=== PATIENT | male | born 1965 | race Caucasian/White ===

== ENCOUNTER 2023-04-18 08:20 | Outpatient (CLI) | payer BC, SELFPAY ==
--- NOTE | ~2023-04-18 | XR_ITS ---
AP, oblique, and lateral views of the right great toe CLINICAL HISTORY: Chronic pain FINDINGS: There is moderate to advanced degenerative change at the first metatarsophalangeal joint. N o fracture or dislocation seen. Remaining visualized joint spaces are preserved. Soft tissues are unr emarkable. IMPRESSION: Moderate to advanced osteoarthritis at the first MTP joint and first metatarsal sesamoid articulation s. Reviewed, dictated and finalized at location . IMPRESSION: Moderate to advanced osteoarthritis at the first MTP joint and first metatarsal sesamoid articulations.
== END 2023-04-18 08:21 | disposition home or self-care (01) ==
LOC: CHSIMG 08:25
PROVIDERS: PCP Family Medicine; Visit Provider Physician Assistant
DX: M79.674 Pain in right toe(s) (principal); M19.071 Primary osteoarthritis, right ankle and foot
CPT/HCPCS: 73660

== ENCOUNTER 2025-01-29 07:02 | Outpatient (CLI) | payer BC, SELFPAY ==
--- OUTSIDE RECORDS SUMMARY | 2025-01-29 07:09 | XMS_ITS | Encounter Summary ---
Author Organization [facility] Healthcare Address [address] [place] [address] Care Team Providers Care Food Safety Scientist Name Role Phone Donis Ramos MD Primary Care Provider [phone] Victor Manuel Nicole MD PhD Unavailable [phone] Alex Gustafson MD Unavailable [phone] Encounter Details Date Type Department Care Team (Late st Contact Info) Description 12/24/2021 Telephone [facility] [address] [place] [address] Safia Tinsley, RT Social History Tobacco Use Types Packs/Day Years Used Date Smoking Tobacco: Former Cigarettes 1.5 18 1 985 - 2002 Smokeless Tobacco: Former Chew Quit: 1988 Alcohol Use Standard Drinks/Week Comments Yes 0 (1 standard drink = 0.6 oz pur e alcohol) frequent, 12 per week Sex and Gender Information Value Date Recorded Sex Assigned at Not on file 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
--- OUTSIDE RECORDS SUMMARY | 2025-01-29 07:09 | XMS_ITS | Clinical Summary ---
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 Gender Identity Not on file Sexual Orientation Not on file Plan of Treatment Health Maintenance Due Date Last Done Comments Colorectal Cancer Screening Colonoscopy (10 Years) 1967 Annual Physical 1970 Hepatitis C 1985 DTaP, Tdap and Td Vaccines ( 1 - Tdap) 1986 Hepatitis B Vaccines (1 of 3 - 19+ 3-dose series) 1986 Zoster Vaccines (1 of 2) 2017 COVID-19 Vaccine (2023-2 5 season) 2024 Influenza Adult (#1) 2024 Meningococcal B Vaccine Aged Out No l onger eligible based on patient's age to complete this topic Meningococcal Vaccine Aged Out No юлия katalina eligible based on patient's age to complete this topic Pneumococcal Vaccine: Pediat rics (0 to 5 Years) and At-Risk Patients (6 to 64 Years) Aged Out No longer eligible b ased on patient's age to complete this topic RSV Immunizations Under 20 Months Aged Out No longer eligible based on patient's age to complete this topic Insurance [facility] [place] Care Teams Manager Forms Relationship Specialty Start Date End Date Donis Ramos MD [address] [place] [id number] PCP - General FAMILY PRACTICE 05/15/21
--- OUTSIDE RECORDS SUMMARY | 2025-01-29 07:09 | XMS_ITS | Referral Summary ---
Author Organization [facility] Address [address] [place] [address] Care Team Providers Care Desulfurizer Hand Name Role Phone Donis Ramos MD Primary Care Provider [phone] Victor Manuel Nicole MD PhD Unavailable [phone] Alex Gustafson MD Unavailable [phone] Allergies No known active allergies Medications omega 8-wqy-dkf-fish oil (FISH OIL) 100-160-1,000 mg capsule Active multivitamin (DAILY MULTI-VITAMIN) tabletIndicatio ns:Vitamin Deficiency Prevention Active sertraline (ZOLOFT) 100 mg tablet Take 1 tablet (100 mg total) by mouth daily Active melatonin 5 mg tablet Active omeprazole (PriLOSEC) 40 mg capsule Take 1 capsule (40 mg total) by mouth 2 (two) times a day 60 capsule 2 Active meloxicam (MOBIC) 7.5 mg tabletIndicatio ns:Osteoarthrit is Take 1 tablet (7.5 mg total) by mouth daily 30 tablet 2 2 Active azelastine (ASTELIN) 137 mcg (0.1 %) nasal spray Administer 2 sprays into each nostril daily Use in each nostril as directed 30 mL 2 2 Active permethrin (ELIMITE) 5 % cream 3 Active pimecrolimus (ELIDEL) 1 % cream Apply topically 2 (two) times a day 30 g 3 4 Active Active Problems Problem Noted Date Diagnosed Date Tear of right rotator cuff 05/18/2019 Overview (05/18/2019): Added automatically from request for surgery [id number] 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 Gender Identity Not on file Sexual Orientation Not on file Last Filed Vital Signs Vital Sign Reading Time Taken Comments Blood Pressure 130/84 09/06/2020 11:06 AM BANK CASHIER Pulse 83 09/06/2020 11:07 AM BANK CASHIER righ t Temperature 37.4 C (99.3 F) 09/06/2020 11:06 AM BANK CASHIER Respiratory Rate 16 09/06/2020 11:06 AM BANK CASHIER Oxygen Saturation 96% 09/06/2020 11:07 AM BANK CASHIER right Inhaled Oxygen Concentration - - Weight 82.1 kg (181 lb) 10/17/2024 7:58 AM BANK CASHIER Height 170.2 cm (5' 7 ) 07/01/2023 11:17 AM CDT Body Mass Index 28.35 07/01/2023 11:17 AM CDT Plan of Treatment Not on file Medical Devices Implanted Type Area Monorail Car Operator Device Identifier Shelf Expiration Date Model / Serial / Lot [employer] Ar-2324 Bcm Swivelock 4.75mm 24.5mm Self Punch Vent Shoulder [place] Suture - [id number] Implanted:Qty: 1 on 06/28/2019 by Oscar Laboy MD at [facility] Right: Shoulder [employer] 11/30/2020 [id number] / / [id number] [employer] Ar-2267 Child Day Care Teacher Large Eyelet Pectoralis Button Fixation Latex Free - [id number] Implanted:Qty: 1 on 06/28/2019 by Oscar Laboy MD at [facility] Right: Shoulder [employer] 02/28/2024 AR-2267 / / [id number] Procedures Procedure Name Priority Date/Time Associated Diagnosis Comments SERUM HEPATITIS C AB Routine 04/08/2014 6:31 AM CDT from Last 3 Months or Most Recently Relevant to Health Maintenance Results * Serum Hepatitis C ab (04/08/2014 6:31 AM CDT) HCV ab Negative NEG HISTORICAL RESULTS Comment: Interpretive Data If confirmation is required, call Laboratory Customer Service to request sample to be sent to [facility] for Hepatitis C Virus (HCV) RNA Detection and Quantitation by Real-Time Reverse Territory Sales Consultant-PCR (RT-PCR). Current interpretive data was last revised on 2012 Serum 04/08/2014 6:31 AM CDT Narrative HISTORICAL RESULTS - 04/09/2014 6:24 AM CDT Test performed at [facility], [address] [facility],, [place], [place], [place], [address]. Franklin Coronel MD LAB BLOOD ORDERABLES Final Result HISTORICAL RESULTS from Last 3 Months or Most Recently Relevant to Health Maintenance Insurance [facility] Care Teams Desulfurizer Hand Relationship Specialty Start Date End Date Donis Ramos MD PCP - General 03/14/17 Victor Manuel Nicole MD PhD Referring Physician Otolaryngology 04/17/18 Alex Gustafson MD [address] [place] [address] # [address] [place] [address] Consulting Physician Radiation Oncology 04/17/18
--- OUTSIDE RECORDS SUMMARY | 2025-01-29 07:09 | XMS_ITS | Continuity of Care Document ---
Author Name [facility] Organization [facility] Care Team Providers Care National Accounts Sales Name Role Phone [facility] Unavailable Unavailable Problems Combined list of problems from Department of Defense and [facility] Affairs facilities. It does not include entries that were removed or entered in error. 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 February 28, 2014 Entered By: NATALIE CATALAN Comment: left tonsil [facility] Facial Fracture Active 07/21/20 02 Condition [facility] Adjustment disorder with mixed emotional features (SNOMED CT 72258475) Active Condition [facility] Alcohol abuse Active Condition [facility] Alcohol Abuse (ICD-9-CM 305.00) Active Condition [facility] Anxiety disorder Active Condition [facility] Chronic alcoholism in remission Active Condition [facility] Decreased Libido (ICD-9-CM 799.81) Active Condition [facility] Diseases due to Viruses and Chlamydiae, other Specified Viral Warts Active Condition Jun 22, 2002 Entered By: NATALIE CATALAN Comment: of hands [facility] Dysthymia Active Condition [facility] Dysthymia (or Depressive neurosis) (ICD-9-CM 300.4) Active Condition [facility] Exposure to potentially hazardous substance Active Condition [facility] Foot Pain (ICD-9-CM 719.47) Active Condition [facility] Generalized anxiety disorder Active Condition [facility] Insomnia Active Condition [facility] Internal derangement of right knee Active Condition [facility] Major depressive disorder Active Condition [facility] Malar and maxillary bones, closed fracture (ICD-9-CM 802.4) Active Condition [facility] Obesity (SNOMED CT 871515201) Active Condition [facility] Recurrent major depression in partial remission Active Condition [facility] Routine General Medical Examination at a Health Care Facility * Active Condition [facility] Sleep disorder Active Condition 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 Tobacco Use Disorder, Remission Active Condition [facility] Tobacco user (SNOMED CT 327155114) Active Condition [facility] Unresolved Active Condition [facility] Diagnosis: ICD-10-CM H90.3 Sensorineural hearing loss, bilateral Active Diagnosis [facility] Diagnosis: ICD-10-CM R52 Pain, unspecified Active Diagnosis [facility] Diagnosis: ICD-10-CM F33.40 Major depressive disorder, recurrent, in remission, unsp Active Diagnosis [facility] Diagnosis: ICD-10-CM F41.1 Generalized anxiety disorder Active Diagnosis [facility] Diagnosis: ICD-10-CM Z00.01 Encounter for general adult medical exam w abnormal findings Active Diagnosis [facility] Diagnosis: ICD-10-CM F43.23 Adjustment disorder with mixed anxiety and depressed mood Active Diagnosis [facility] Medications Combined list of outpatient medications from Department of Defense and Veterans Affairs facilities.Medications provided include 1) outpatient medications from the last 15 months, and 2) patient-reported medications. Medication Details Route Status Patient Instructions Prescription Expires Prescription Number Last Dispense Date Ordering Provider Order Date Order Qty Source LACTOBACILL US ACIDOPHILUS TAB,CHEWABL E TAKE ONE TABLET BY MOUTH TWICE A DAY ORAL ACTIVE IRVING CATALAN 2011 [facility] MELATONIN 3MG CAP/TAB TAKE TWO CAP/TAB BY MOUTH AT BEDTIME FOR SLEEP ORAL 11/18/2024 [id number] DARIANA MARTIN 2023 180 [facility] MULTIVITAMI N (OTC) TAB TAKE BY MOUTH EVERY DAY ORAL ACTIVE IRVING CATALAN 2005 [facility] PROPRANOLOL HCL 10MG TAB TAKE ONE TABLET BY MOUTH EVERY MORNING AND TAKE ONE TABLET ONCE A DAY NEEDED FOR ANXIETY ORAL ACTIVE 12/04/2025 [id number] FREDA GONZALEZ [address] [facility] PROPRANOLOL HCL 10MG TAB TAKE ONE TABLET BY MOUTH EVERY MORNING AND TAKE ONE TABLET ONCE A DAY NEEDED FOR ANXIETY ORAL DISCONT INUED 11/18/2024 [id number] 4 DARIANA MARTIN 2023 180 [facility] SERTRALINE HCL 100MG TAB TAKE ONE TABLET BY MOUTH ONCE A DAY FOR MOOD ORAL ACTIVE 03/06/2025 [id number] PRAKASH GALINDO SA [address] [facility] SERTRALINE HCL 100MG TAB TAKE TWO TABLETS BY MOUTH ONCE A DAY FOR MOOD ORAL DISCONT INUED (EDIT) 12/30/2024 [id number] 5 DARIANA MARTIN 2023 180 [facility] SERTRALINE HCL 100MG TAB TAKE ONE AND ONE-HALF TABLETS BY MOUTH ONCE A DAY FOR MOOD ORAL DISCONT INUED (EDIT) 11/18/2024 [id number] 4 DARIANA MARTIN 2023 135 [facility] TRAZODONE HCL 100MG TAB TAKE ONE-HALF TABLET BY MOUTH AT BEDTIME NEEDED BE SURE TO DECREASE YOUR SERTRALI NE TO 100MG DAILY SINCE YOU ARE ADDING THIS MEDICATI ON BE SURE TO DECREASE YOUR SERTRALI NE TO 100MG DAILY SINCE YOU ARE ADDING THIS MEDICATI ON ORAL ACTIVE 03/06/2025 [id number] 5 PRAKASH GALINDO SA 2024 45 [facility] ZZZFISH OIL CAP/TAB ACTIVE IRVING CATALAN 2005 [facility] Immunizations Combined list of available immunizations from the Department of Defense and Veterans Affairs facilities. Immunization Series Date Given Administered By Site Reaction Lot Number CVX Code Drug Cook Starch Status Comments Source INFLUENZA, UNSPECIFIED FORMULATION 2022 88 complet ed [facility] COVID-19 (MODERNA), MRNA, LNP-S, PF, 100 MCG/0.5 ML DOSE 2 2020 207 complet ed MOD; [id number]; 1 [facility] COVID-19 (MODERNA), MRNA, LNP-S, PF, 100 MCG/0.5 ML DOSE 1 2020 207 complet ed MOD; [id number]; 1 [facility] INFLUENZA, INJECTABLE, QUADRIVALENT, PRESERVATIVE FREE 1 2019 150 complet ed [facility] INFLUENZA, UNSPECIFIED FORMULATION 2019 88 complet ed [facility] INFLUENZA, UNSPECIFIED FORMULATION 2014 88 complet ed [facility] INFLUENZA, UNSPECIFIED FORMULATION 2014 88 complet ed [facility] INFLUENZA, UNSPECIFIED FORMULATION 2013 88 complet ed [facility] TDAP 2013 115 complet ed [facility] INFLUENZA, UNSPECIFIED FORMULATION 2011 88 complet ed [facility] INFLUENZA, UNSPECIFIED FORMULATION 2010 88 complet ed [facility] INFLUENZA, UNSPECIFIED FORMULATION 2009 88 complet ed [facility] NOVEL INFLUENZA-H1N 1-09, ALL FORMULATIONS 2008 128 complet ed [facility] TD(ADULT) UNSPECIFIED FORMULATION 2007 139 complet ed [facility] INFLUENZA, UNSPECIFIED FORMULATION 2006 88 complet ed Left Deltoid 0.5ml IM [place] [facility] INFLUENZA, UNSPECIFIED FORMULATION 1999 LU[facility] RODRIGUEZ 88 complet ed [facility] TD(ADULT) UNSPECIFIED FORMULATION 1998 139 complet ed [facility] Results Combined list of recent chemistry, hematology and other laboratory results from Department of Defense and Veterans Affairs, ranging from 15 months to all on record, depending upon the facility. Order Name Results Value Reference Range Date Interpretation Specimen Comments Source HGA1C HEMOGLOBIN A1C/HEMOGLO BIN.TOTAL IN BLOOD 5.9 4.0 - 6.0 06/07 Specimen Type: BLOOD No comment entered. Ordering Provider: ANKUSH BELTRAN Report Released Date/Time: Jun 07, 2024 10:58 AM Reporting Lab: [address] [address] Performing Lab: [address] [facility] PROST. SPECIFIC AG.(PB-STL ) PROSTATE SPECIFIC AG [MASS/VOLUM E] IN SERUM OR PLASMA 0.444 ng/mL 0 - 4 12/05 Specimen Type: SERUM Comment: The listed sex of this patient may not be a typical indication for this test. Therefore, reference ranges or interpretive criteria listed may not be valid. Clinical correlation suggested. Ordering Provider: ANKUSH BELTRAN Report Released Date/Time: Dec 02, 2023 03:41 PM Reporting Lab: [place] [address] Performing Lab: [address] [facility] VITAMIN D, 25-HYDROXY 25-HYDROXYV ITAMIN D3 [MASS/VOLUM E] IN SERUM OR PLASMA 48.3 ng/mL 30 - 96 12/05 Specimen Type: SERUM Comment: The listed sex of this patient may not be a typical indication for this test. Therefore, reference ranges or interpretive criteria listed may not be valid. Clinical correlation suggested. Ordering Provider: ANKUSH BELTRAN Report Released Date/Time: Dec 02, 2023 03:41 PM Reporting Lab: [address] [address] Performing Lab: [address] [facility] TSH (MA-PB-STL ) THYROTROPIN [UNITS/VOLU ME] IN SERUM OR PLASMA 2.539 u[IU]/ mL 0.47 - 5 12/05 Specimen Type: SERUM Comment: The listed sex of this patient may not be a typical indication for this test. Therefore, reference ranges or interpretive criteria listed may not be valid. Clinical correlation suggested. Ordering Provider: ANKUSH BELTRAN Report Released Date/Time: Dec 02, 2023 03:41 PM Reporting Lab: [facility] [address] [place] [phone] Performing Lab: [facility] [address] [place] [phone] [facility] LIPID PANEL (STL) CHOLESTEROL [MASS/VOLUM E] IN SERUM OR PLASMA 232 mg/dL 0 - 200 12/05 H Specimen Type: PLASMA Comment: No hemolysis noted. Ordering Provider: ANKUSH BELTRAN Report Released Date/Time: Dec 02, 2023 03:42 PM Reporting Lab: [address] [address] Performing Lab: [address] [phone] [place] [address] [facility] LIPID PANEL (STL) TRIGLYCERID E [MASS/VOLUM E] IN SERUM OR PLASMA 234 mg/dL 0 - 150 12/05 H Specimen Type: PLASMA Comment: No hemolysis noted. Ordering Provider: ANKUSH BELTRAN Report Released Date/Time: Dec 02, 2023 03:42 PM Reporting Lab: [address] [address] Performing Lab: [address] [address] [facility] LIPID PANEL (STL) CHOLESTEROL IN LDL [MASS/VOLUM E] IN SERUM OR PLASMA BY CALCULATION 132 mg/dL 12/05 Specimen Type: PLASMA Comment: No hemolysis noted. Ordering Provider: ANKUSH BELTRAN Report Released Date/Time: Dec 02, 2023 03:42 PM Reporting Lab: [address] [address] Performing Lab: [address] [address] [facility] LIPID PANEL (STL) CHOLESTEROL IN HDL [MASS/VOLUM E] IN SERUM OR PLASMA 53 mg/dL 40 12/05 Specimen Type: PLASMA Comment: No hemolysis noted. Ordering Provider: ANKUHS BELTRAN Report Released Date/Time: Dec 02, 2023 03:42 PM Reporting Lab: [address] [address] Performing Lab: [address] [phone] [facility] CBC LEUKOCYTES [#/VOLUME] IN BLOOD BY AUTOMATED COUNT 4.8 10*3/u L 3.6 - 11.2 12/05 Specimen Type: BLOOD No comment entered. Ordering Provider: ANKUSH BELTRAN Report Released Date/Time: Dec 02, 2023 03:41 PM Reporting Lab: [address] [address] Performing Lab: [address] [phone] [facility] CBC ERYTHROCYTE S [#/VOLUME] IN BLOOD BY AUTOMATED COUNT 4.56 10*6/u L 4.10 - 5.70 12/05 Specimen Type: BLOOD No comment entered. Ordering Provider: ANKUSH BELTRAN Report Released Date/Time: Dec 02, 2023 03:41 PM Reporting Lab: [address] [address] Performing Lab: [address] [phone] [place] [address] [facility] CBC HEMOGLOBIN [MASS/VOLUM E] IN BLOOD 12.4 g/dL 13.1 - 16.8 12/05 L Specimen Type: BLOOD No comment entered. Ordering Provider: NAKUSH BELTRAN Report Released Date/Time: Dec 02, 2023 03:41 PM Reporting Lab: [address] [address] Performing Lab: [phone] [place] [address] [facility] CBC HEMATOCRIT [VOLUME FRACTION] OF BLOOD 37.8 38.2 - 48.4 12/05 L Specimen Type: BLOOD No comment entered. Ordering Provider: ANKUSH BELTRAN Report Released Date/Time: Dec 02, 2023 03:41 PM Reporting Lab: [address] [address] Performing Lab: [address] [address] [facility] CBC MCV [ENTITIC VOLUME] BY AUTOMATED COUNT 82.9 fL 80.0 - 100.0 12/05 Specimen Type: BLOOD No comment entered. Ordering Provider: ANKUSH BELTRAN Report Released Date/Time: Dec 02, 2023 03:41 PM Reporting Lab: [address] [address] Performing Lab: [address] [facility] CBC MCH [ENTITIC MASS] BY AUTOMATED COUNT 27.2 pg 27.0 - 34.0 12/05 Specimen Type: BLOOD No comment entered. Ordering Provider: ANKUSH BELTRAN Report Released Date/Time: Dec 02, 2023 03:41 PM Reporting Lab: [address] [address] Performing Lab: [address] [phone] [place] [address] [facility] CBC MCHC [MASS/VOLUM E] BY AUTOMATED COUNT 32.8 g/dL 33.0 - 36.0 12/05 L Specimen Type: BLOOD No comment entered. Ordering Provider: ANKUSH BELTRAN Report Released Date/Time: Dec 02, 2023 03:41 PM Reporting Lab: [address] Performing Lab: [phone] [place] [address] [facility] CBC PLATELETS [#/VOLUME] IN BLOOD BY AUTOMATED COUNT 161 10*3/u L 150 - 400 12/05 Specimen Type: BLOOD No comment entered. Ordering Provider: ANKUSH BELTRAN Report Released Date/Time: Dec 02, 2023 03:41 PM Reporting Lab: [facility] [address] [facility] [address] Performing Lab: [facility] [address] [place] [phone] [facility] CBC PLATELET MEAN VOLUME [ENTITIC VOLUME] IN BLOOD BY AUTOMATED COUNT 10.5 fL 7.5 - 11.2 12/05 Specimen Type: BLOOD No comment entered. Ordering Provider: ANKUSH BELTRAN Report Released Date/Time: Dec 02, 2023 03:41 PM Reporting Lab: [facility] [address] [place] [phone] Performing Lab: [address] [phone] [place] [address] [facility] CBC ERYTHROCYTE DISTRIBUTIO N WIDTH [RATIO] BY AUTOMATED COUNT 14.8 11.8 - 15.1 12/05 Specimen Type: BLOOD No comment entered. Ordering Provider: ANKUSH BELTRAN Report Released Date/Time: Dec 02, 2023 03:41 PM Reporting Lab: [facility] [address] [place] [phone] Performing Lab: [facility] [address] [place] [phone] [facility] CBC LYMPHOCYTES /100 LEUKOCYTES IN BLOOD BY AUTOMATED COUNT 24 12/05 Specimen Type: BLOOD No comment entered. Ordering Provider: ANKUSH BELTRAN Report Released Date/Time: Dec 02, 2023 03:41 PM Reporting Lab: [facility] [address] [place] [address] Performing Lab: [facility] [address] [place] [phone] [facility] CBC MONOCYTES/1 00 LEUKOCYTES IN BLOOD BY AUTOMATED COUNT 8 12/05 Specimen Type: BLOOD No comment entered. Ordering Provider: ANKUSH BELTRAN Report Released Date/Time: Dec 02, 2023 03:41 PM Reporting Lab: [facility] [address] [place] [phone] Performing Lab: [facility] [address] [facility] [address] [facility] CBC NEUTROPHILS /100 LEUKOCYTES IN BLOOD BY AUTOMATED COUNT 64 12/05 Specimen Type: BLOOD No comment entered. Ordering Provider: ANKUSH BELTRAN Report Released Date/Time: Dec 02, 2023 03:41 PM Reporting Lab: [facility] [address] [facility] [address] Performing Lab: [place] [address] [place] [phone] [place] [address] [facility] CBC EOSINOPHILS /100 LEUKOCYTES IN BLOOD BY AUTOMATED COUNT 2 12/05 Specimen Type: BLOOD No comment entered. Ordering Provider: ANKUSH BELTRAN Report Released Date/Time: Dec 02, 2023 03:41 PM Reporting Lab: [facility] [address] Performing Lab: [place] [address] [place] [phone] [facility] CBC BASOPHILS/1 00 LEUKOCYTES IN BLOOD BY AUTOMATED COUNT 1 12/05 Specimen Type: BLOOD No comment entered. Ordering Provider: ANKUSH BELTRAN Report Released Date/Time: Dec 02, 2023 03:41 PM Reporting Lab: [facility] [address] [facility] [address] Performing Lab: [facility] [address] [facility] [phone] [place] [address] [facility] CBC LYMPHOCYTES [#/VOLUME] IN BLOOD BY AUTOMATED COUNT 1.13 10*3/u L 0.77 - 4.50 12/05 Specimen Type: BLOOD No comment entered. Ordering Provider: AKNUSH BELTRAN Report Released Date/Time: Dec 02, 2023 03:41 PM Reporting Lab: [facility] [address] [place] [address] Performing Lab: [place] [address] [facility] [address] [facility] CBC MONOCYTES [#/VOLUME] IN BLOOD BY AUTOMATED COUNT 0.40 10*3/u L 0.19 - 0.80 12/05 Specimen Type: BLOOD No comment entered. Ordering Provider: ANKUSH BELTRAN Report Released Date/Time: Dec 02, 2023 03:41 PM Reporting Lab: [address] [address] Performing Lab: [address] [phone] [facility] CBC NEUTROPHILS [#/VOLUME] IN BLOOD BY AUTOMATED COUNT 3.08 10*3/u L 2.10 - 8.00 12/05 Specimen Type: BLOOD No comment entered. Ordering Provider: ANKUSH BELTRAN Report Released Date/Time: Dec 02, 2023 03:41 PM Reporting Lab: [address] [address] Performing Lab: [address] [phone] [facility] CBC EOSINOPHILS [#/VOLUME] IN BLOOD BY AUTOMATED COUNT 0.10 10*3/u L 0.00 - 0.60 12/05 Specimen Type: BLOOD No comment entered. Ordering Provider: ANKUSH BELTRAN Report Released Date/Time: Dec 02, 2023 03:41 PM Reporting Lab: [address] [address] Performing Lab: [address] [address] [facility] CBC BASOPHILS [#/VOLUME] IN BLOOD BY AUTOMATED COUNT 0.05 10*3/u L 0.00 - 0.20 12/05 Specimen Type: BLOOD No comment entered. Ordering Provider: ANKUSH BELTRAN Report Released Date/Time: Dec 02, 2023 03:41 PM Reporting Lab: [place] [address] [facility] [address] Performing Lab: [facility] [address] [facility] [address] [facility] COMPREHENS DELL METABOLIC PANEL CREATININE [MASS/VOLUM E] IN SERUM OR PLASMA 0.99 mg/dL 0.7 - 1.3 12/05 Specimen Type: PLASMA Comment: No hemolysis noted. Ordering Provider: ANKUSH BELTRAN Report Released Date/Time: Dec 02, 2023 03:41 PM Reporting Lab: [place] [address] [facility] [address] Performing Lab: [place] [address] [facility] [address] [facility] COMPREHENS DELL METABOLIC PANEL UREA NITROGEN [MASS/VOLUM E] IN SERUM OR PLASMA 18.4 mg/dL 9.0 - 25.0 12/05 Specimen Type: PLASMA Comment: No hemolysis noted. Ordering Provider: ANKUSH BELTRAN Report Released Date/Time: Dec 02, 2023 03:41 PM Reporting Lab: [place] [address] [facility] [address] Performing Lab: [place] [address] [facility] [address] [facility] COMPREHENS DELL METABOLIC PANEL GLUCOSE [MASS/VOLUM E] IN SERUM OR PLASMA 107 mg/dL 72 - 99 12/05 H Specimen Type: PLASMA Comment: No hemolysis noted. Ordering Provider: ANKUSH BELTRAN Report Released Date/Time: Dec 02, 2023 03:41 PM Reporting Lab: [facility] [address] Performing Lab: [address] [address] [facility] COMPREHENS DELL METABOLIC PANEL SODIUM [MOLES/VOLU ME] IN SERUM OR PLASMA 138 meq/L 136 - 145 12/05 Specimen Type: PLASMA Comment: No hemolysis noted. Ordering Provider: ANKUSH BELTRAN Report Released Date/Time: Dec 02, 2023 03:41 PM Reporting Lab: [facility] [address] [facility] [address] Performing Lab: [place] [address] [facility] [address] [facility] COMPREHENS DELL METABOLIC PANEL POTASSIUM [MOLES/VOLU ME] IN SERUM OR PLASMA 4.3 meq/L 3.5 - 5 12/05 Specimen Type: PLASMA Comment: No hemolysis noted. Ordering Provider: ANKUSH BELTRAN Report Released Date/Time: Dec 02, 2023 03:41 PM Reporting Lab: [place] [address] [facility] [address] Performing Lab: [place] [address] [facility] [phone] [place] [address] [facility] COMPREHENS DELL METABOLIC PANEL CHLORIDE [MOLES/VOLU ME] IN SERUM OR PLASMA 104 meq/L 98 - 107 12/05 Specimen Type: PLASMA Comment: No hemolysis noted. Ordering Provider: ANKUSH BELTRAN Report Released Date/Time: Dec 02, 2023 03:41 PM Reporting Lab: [place] [address] [facility] [address] Performing Lab: [place] [address] [facility] [phone] [place] [address] [facility] COMPREHENS EDLL METABOLIC PANEL CARBON DIOXIDE, TOTAL [MOLES/VOLU ME] IN SERUM OR PLASMA 25 meq/L 22 - 31 12/05 Specimen Type: PLASMA Comment: No hemolysis noted. Ordering Provider: ANKUSH BELTRAN Report Released Date/Time: Dec 02, 2023 03:41 PM Reporting Lab: [place] [address] [facility] [address] Performing Lab: [address] [address] [facility] COMPREHENS DELL METABOLIC PANEL CALCIUM [MASS/VOLUM E] IN SERUM OR PLASMA 9.8 mg/dL 8.4 - 10.4 12/05 Specimen Type: PLASMA Comment: No hemolysis noted. Ordering Provider: ANKUSH BELTRAN Report Released Date/Time: Dec 02, 2023 03:41 PM Reporting Lab: [facility] [address] [facility] [address] Performing Lab: [facility] [address] [facility] [address] [facility] COMPREHENS DELL METABOLIC PANEL PROTEIN [MASS/VOLUM E] IN SERUM OR PLASMA 7.5 g/dL 6 - 8.6 12/05 Specimen Type: PLASMA Comment: No hemolysis noted. Ordering Provider: ANKUSH BELTRAN Report Released Date/Time: Dec 02, 2023 03:41 PM Reporting Lab: [place] [address] [facility] [address] Performing Lab: [place] [address] [facility] [address] [facility] COMPREHENS DELL METABOLIC PANEL ALBUMIN [MASS/VOLUM E] IN SERUM OR PLASMA 4.6 g/dL 3.4 - 5 12/05 Specimen Type: PLASMA Comment: No hemolysis noted. Ordering Provider: ANKUSH BELTRAN Report Released Date/Time: Dec 02, 2023 03:41 PM Reporting Lab: [facility] [address] [facility] [address] Performing Lab: [place] [address] [facility] [address] [facility] COMPREHENS DELL METABOLIC PANEL BILIRUBIN.T OTAL [MASS/VOLUM E] IN SERUM OR PLASMA 0.5 mg/dL 0.2 - 1.2 12/05 Specimen Type: PLASMA Comment: No hemolysis noted. Ordering Provider: ANKUSH BELTRAN Report Released Date/Time: Dec 02, 2023 03:41 PM Reporting Lab: [facility] [address] [facility] [address] Performing Lab: [place] [address] [facility] [address] [facility] COMPREHENS DELL METABOLIC PANEL ALKALINE PHOSPHATASE [ENZYMATIC ACTIVITY/VO LUME] IN SERUM OR PLASMA 71 U/L 40 - 150 12/05 Specimen Type: PLASMA Comment: No hemolysis noted. Ordering Provider: ANKUSH BELTRAN Report Released Date/Time: Dec 02, 2023 03:41 PM Reporting Lab: [place] [phone] Performing Lab: [address] [phone] [place] [address] [facility] COMPREHENS DELL METABOLIC PANEL ASPARTATE AMINOTRANSF ERASE [ENZYMATIC ACTIVITY/VO LUME] IN SERUM OR PLASMA 29 U/L 5 - 34 12/05 Specimen Type: PLASMA Comment: No hemolysis noted. Ordering Provider: ANKUSH BELTRAN Report Released Date/Time: Dec 02, 2023 03:41 PM Reporting Lab: [place] [phone] Performing Lab: [place] [phone] [place] [address] [facility] COMPREHENS DELL METABOLIC PANEL ALANINE AMINOTRANSF ERASE [ENZYMATIC ACTIVITY/VO LUME] IN SERUM OR PLASMA 16 U/L 8 - 40 12/05 Specimen Type: PLASMA Comment: No hemolysis noted. Ordering Provider: ANKUSH BELTRAN Report Released Date/Time: Dec 02, 2023 03:41 PM Reporting Lab: [address] [address] Performing Lab: [address] [phone] [facility] COMPREHENS DELL METABOLIC PANEL GLOMERULAR FILTRATION RATE/1.73 SQ M.PREDICTED [VOLUME RATE/AREA] IN SERUM, PLASMA OR BLOOD BY CREATININE- BASED FORMULA (CKD-EPI 2020) 89.4 60 12/05 Specimen Type: PLASMA Comment: No hemolysis noted. Ordering Provider: ANKUSH BELTRAN Report Released Date/Time: Dec 02, 2023 03:41 PM Reporting Lab: [address] [address] Performing Lab: [facility] [address] [facility] [address] [facility] HGA1C HEMOGLOBIN A1C/HEMOGLO BIN.TOTAL IN BLOOD 6.2 4.0 - 6.0 12/05 H Specimen Type: BLOOD No comment entered. Ordering Provider: ANKUSH BELTRAN Report Released Date/Time: Dec 02, 2023 03:42 PM Reporting Lab: [place] [address] [facility] [address] Performing Lab: [place] [address] [facility] [address] [facility] URINALYSIS (STL-PB) COLOR OF URINE Light- Yellow 12/05 Specimen Type: URINE No comment entered. Ordering Provider: ANKUSH BELTRAN Report Released Date/Time: Dec 02, 2023 03:42 PM Reporting Lab: [place] [address] [facility] [address] Performing Lab: [place] [address] [facility] [address] [facility] URINALYSIS (STL-PB) BILIRUBIN.T OTAL [PRESENCE] IN URINE BY TEST STRIP Negati vemg/d L 12/05 Specimen Type: URINE No comment entered. Ordering Provider: ANKUSH BELTRAN Report Released Date/Time: Dec 02, 2023 03:42 PM Reporting Lab: [place] [address] [facility] [address] Performing Lab: [place] [address] [facility] [address] [facility] URINALYSIS (STL-PB) PH OF URINE BY TEST STRIP 6.0 5.0 - 8.0 12/05 Specimen Type: URINE No comment entered. Ordering Provider: ANKUSH BELTRAN Report Released Date/Time: Dec 02, 2023 03:42 PM Reporting Lab: [place] [address] [place] [phone] Performing Lab: [place] [address] [facility] [address] [facility] URINALYSIS (STL-PB) APPEARANCE OF URINE Clear 12/05 Specimen Type: URINE No comment entered. Ordering Provider: ANKUSH BELTRAN Report Released Date/Time: Dec 02, 2023 03:42 PM Reporting Lab: [place] [address] [facility] [address] Performing Lab: [place] [address] [facility] [address] [facility] URINALYSIS (STL-PB) NITRITE [PRESENCE] IN URINE BY TEST STRIP Negati vemg/d L 12/05 Specimen Type: URINE No comment entered. Ordering Provider: ANKUSH BELTRAN Report Released Date/Time: Dec 02, 2023 03:42 PM Reporting Lab: [address] [address] Performing Lab: [place] [address] [facility] [address] [facility] URINALYSIS (STL-PB) GLUCOSE [MASS/VOLUM E] IN URINE BY TEST STRIP Normal mg/dL 12/05 Specimen Type: URINE No comment entered. Ordering Provider: ANKUSH BELTRAN Report Released Date/Time: Dec 02, 2023 03:42 PM Reporting Lab: [place] [address] [facility] [address] Performing Lab: [address] [address] [facility] URINALYSIS (STL-PB) PROTEIN [MASS/VOLUM E] IN URINE BY TEST STRIP Negati vemg/d L - 20 12/05 Specimen Type: URINE No comment entered. Ordering Provider: ANKUSH BELTRAN Report Released Date/Time: Dec 02, 2023 03:42 PM Reporting Lab: [place] [address] [facility] [address] Performing Lab: [address] [place] [address] [facility] URINALYSIS (STL-PB) URN.UROBILI NOGEN Normal mg/dL 12/05 Specimen Type: URINE No comment entered. Ordering Provider: ANKUSH BELTRAN Report Released Date/Time: Dec 02, 2023 03:42 PM Reporting Lab: [place] [phone] Performing Lab: [place] [phone] [facility] URINALYSIS (STL-PB) HEMOGLOBIN [MASS/VOLUM E] IN URINE BY TEST STRIP Negati vemg/d L 12/05 Specimen Type: URINE No comment entered. Ordering Provider: ANKUSH BELTRAN Report Released Date/Time: Dec 02, 2023 03:42 PM Reporting Lab: [place] [phone] Performing Lab: [place] [phone] [facility] URINALYSIS (STL-PB) KETONES [MASS/VOLUM E] IN URINE BY TEST STRIP Negati vemg/d L 12/05 Specimen Type: URINE No comment entered. Ordering Provider: ANKUSH BELTRAN Report Released Date/Time: Dec 02, 2023 03:42 PM Reporting Lab: [place] [phone] Performing Lab: [place] [phone] [facility] [address] [facility] URINALYSIS (STL-PB) URN.LEUK.ES T. Negati vemg/d L 12/05 Specimen Type: URINE No comment entered. Ordering Provider: ANKUSH BELTRAN Report Released Date/Time: Dec 02, 2023 03:42 PM Reporting Lab: [place] [phone] Performing Lab: [address] [place] [address] [facility] URINALYSIS (STL-PB) SPECIFIC GRAVITY OF URINE 1.016 1.005 - 1.029 12/05 Specimen Type: URINE No comment entered. Ordering Provider: ANKUSH BELTRAN Report Released Date/Time: Dec 02, 2023 03:42 PM Reporting Lab: [address] [address] Performing Lab: [address] [address] [facility] Encounters Combined list of: 1) Encounters from Department of [facility] facilities going backup to the last 18 months, not all VA inpatient encounters are included; 2) Encounters from the Department of [facility] facilities going backup to 280 months. Location Location Details Encounter Type Encounter Number Reason For Visit Attending Provider ADM Date DC Date Status Disposition Source [facility] Outpatient Encounter [id number] 07/31 [facility] Outpatient Encounter [id number] KIERA JONAS 11/04 [facility] Outpatient Encounter [id number] 11/04 [facility] O/P EST MOD 30 MIN [id number] Diagnos is: ICD-10- CM F43.23 Adjustm ent disorde r with mixed anxiety and depress ed mood JESSENIA MARTIN 11/18 [facility] Outpatient Encounter [id number] 11/30 [facility] Outpatient Encounter [id number] 12/02 [facility] [id number] Diagnos is: ICD-10- CM F43.23 Adjustm ent disorde r with mixed anxiety and depress ed mood YURY BELTRAN IS J 12/02 [facility] O/P EST MOD 30 MIN [id number] Diagnos is: ICD-10- CM Z00.01 Encount er for general adult medical exam w abnorma l finding s RUBY,AR IS J 12/02 [facility] O/P EST MOD 30 MIN [id number] Diagnos is: ICD-10- CM F41.1 General ized anxiety disorde r JESSENIA MARTIN IE 12/29 [facility] Outpatient Encounter [id number] 01/01 [facility] O/P EST MOD 30 MIN [id number] Diagnos is: ICD-10- CM F33.40 Major depress dell disorde r, recurre nt, in remissi on, unsp JESSENIA MARTIN IE 02/08 [facility] Outpatient Encounter [id number] 05/16 [facility] Outpatient Encounter [id number] 05/16 [facility] Outpatient Encounter [id number] 05/16 [facility] Outpatient Encounter [id number] 05/17 [facility] Outpatient Encounter [id number] 05/23 [facility] OFF/OP EST MAY X REQ PHY/QHP [id number] Diagnos is: ICD-10- CM R52 Pain, unspeci fied SUSAN,ARM RADHA 06/07 [facility] ACOUSTIC IMMITANCE TESTING [id number] Diagnos is: ICD-10- CM H90.3 Sensori neural hearing loss, bilater Stephane Keller 08/02 [facility] Outpatient Encounter [id number] 08/31 [facility] Outpatient Encounter [id number] DB BENNETT 09/04 [facility] Outpatient Encounter [id number] 09/06 [facility] Outpatient Encounter [id number] DAILY RAYGOZA 11/21 [facility] Social History Combined list of available smoking, tobacco, and other social history from Department of Defense and Veterans Affairs facilities. Social History Type Response Date [facility] Tobacco smoking status NHIS VA-TOBACCO FORMER USER 12/02/2023 [facility] History of tobacco use VA-TOBACCO QUIT 15 YRS OR MORE 12/02/2023 [facility] History of tobacco use VA-TOBACCO FORMER USER 07/20/2021 [facility] History of tobacco use VA-TOBACCO NEVER USED 06/16/2020 [facility] History of tobacco use VA-TOBACCO QUIT 15 YRS OR MORE 01/12/2019 [facility] History of tobacco use QUIT TOBACCO >7 YEARS AGO 12/21/2016 [facility] History of tobacco use QUIT TOBACCO >7 YEARS AGO 11/05/2015 [facility] History of tobacco use QUIT TOBACCO >7 YEARS AGO 10/08/2014 [facility] History of tobacco use QUIT TOBACCO >7 YEARS AGO 11/19/2010 [facility] History of tobacco use QUIT TOBACCO >12 MO and <7 YRS AGO 11/04/2009 [facility] History of tobacco use QUIT TOBACCO >12 MO and <7 YRS AGO 10/18/2008 [facility] History of tobacco use QUIT TOBACCO >12 MO and <7 YRS AGO 01/13/2007 [facility] Advance Directives List of completed, amended, or rescinded Advance Directives on record at [facility] of [facility] facilities. An actual copy of the Directive is not included. Date Advance Directive Provider Source 01/30/2006 ADVANCE DIRECTIVE ANA VEE
--- OUTSIDE RECORDS SUMMARY | 2025-01-29 07:09 | XMS_ITS | Clinical Summary ---
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 Surgical History Surgery Date Site/Laterality Comments CENTRAL LINE PLACEMENT > 5 YEARS 04/04/2014 N/A RESECTION TONSIL RADICAL 10/31/2013 - 10/30/2014 ORBITAL RECONSTRUCTION 10/31/2002 - 10/30/2003 [facility] KNEE ARTHROSCOPY MANDIBLE SURGERY 10/31/2002 - 10/30/2003 jaw surgery for malocclusion, metal implants FLUORO GUIDED INJECTION SHOULDER LEFT 12/25/2021 Left Medical History Medical History Date Comments Cancer (HCC) 2013 tonsil, [place] with excision, chemo and radiation Hyperlipidemia borderline, no m eds Insomnia Allergic rhinitis Depression Family History Medical History Relation Name Comments No Known Problems Mother Relation Name Status Comments Mother Social History Tobacco Use Types Packs/Day Years Used Date Smoking Tobacco: Former Cigarettes 1.5 18 1 - 2002 Smokeless Tobacco: Former Chew Quit: [...] on file Legal Sex Male 10:00 AM EVENT PROMOTER Gender Identity Not on file Sexual Orientation Not on file Obstetrics History Last Filed Vital Signs Vital Sign Reading Time Taken Comments Blood Pressure 130/84 09/06/2020 11:06 AM EVENT PROMOTER Pulse 83 09/06/2020 11:07 AM EVENT PROMOTER righ t Temperature 37.4 C (99.3 F) 09/06/2020 11:06 AM EVENT PROMOTER Respiratory Rate 16 09/06/2020 11:06 AM EVENT PROMOTER Oxygen Saturation 96% 09/06/2020 11:07 AM EVENT PROMOTER right Inhaled Oxygen Concentration - - Weight 82.1 kg (181 lb) 10/17/2024 7:58 AM EVENT PROMOTER Height 170.2 cm (5' 7 ) 07/01/2023 11:17 AM CDT Body Mass Index 28.35 07/01/2023 11:17 AM CDT Plan of Treatment Health Maintenance Due Date Last Done Comments Colon Cancer Screening-Colonoscopy 1967 Depression Screening 1967 Prostate Cancer Screening-PSA 1967 Hepatitis B Screening 1985 Regular Well Visit/Exam 18-64 1985 Pneumococcal vaccine <65 (1 of 2 - PCV) 1986 Zoster Vaccine (1 of 2) 2017 DTaP/Tdap/Td Vaccine (2 - Td or Tdap) 10/31/2023 10/31/2013, 06/14/2008, 10/31/1998 Influenza Vaccine (#1) 2024 3, 08/15/2020, 08/04/2020, Additional history exists Hepatitis C Screening Completed 04/08/2014 Medical Devices Implanted Type Area Laminated Plastics Assembler And Gluer Device Identifier Shelf Expiration Date Model / Serial / Lot [employer] Ar-2324 Bcm Swivelock 4.75mm 24.5mm Self Punch Vent Shoulder [place] Suture - [id number] Implanted:Qty: 1 on 06/28/2019 by Oscar Laboy MD at [facility] [place] Right: Shoulder [employer] 11/30/2020 [id number] / / [id number] [employer] Ar-2267 Gin Pole Operator Large Eyelet Pectoralis Button Fixation Latex Free - [id number] Implanted:Qty: 1 on 06/28/2019 by Oscar Laboy MD at [facility] [place] Right: Shoulder [employer] 02/28/2024 AR-2267 / / [id number] Procedures Procedure Name Priority Date/Time Associated Diagnosis [...] RNA Detection and Quantitation by Real-Time Reverse Shuttler Car-PCR (RT-PCR). Current interpretive data was last revised on 2012 Serum 04/08/2014 6:31 AM CDT Narrative HISTORICAL RESULTS - 04/09/2014 6:24 AM CDT Test performed at [facility], [address] [facility] [address] [place], [place], [place], [address]. Franklin Coronel MD LAB BLOOD ORDERABLES Final Result HISTORICAL RESULTS from Last 3 Months or Most Recently Relevant to Health Maintenance Insurance [facility] Care Teams Doctor Of Naprapathic Medicine Relationship Specialty Start Date End Date Donis Ramos MD PCP - General 03/14/17 Victor Manuel Nicole MD PhD Referring Physician Otolaryngology 04/17/18 Alex Gustafson MD [address] [facility] [address] [place] [address] Consulting Physician Radiation Oncology 04/17/18
--- OUTSIDE RECORDS SUMMARY | 2025-01-29 07:09 | XMS_ITS ---
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 Past Treatment and Therapy Plans No past plan information found. Lifetime Dose Tracking * Chemical Lifetime Dose Automatic Entry Manual Entr y Fluoro Time 8.717 minutes 8.717 minutes 0 minutes Air kerma at the reference point (Ka,r) 80.891 mGy 8 0.891 mGy 0 mGy DLP 4,285 mGycm 4,285 mGycm 0 mGycm
--- OUTSIDE RECORDS SUMMARY | 2025-01-29 07:09 | XMS_ITS ---
Author Name [facility] Address [address] [place] [address] Care Team Providers Care Materials Management Clerk Name Role Phone ODALYS GONZALEZ Primary Care Provider Unavailabl e Insurance Providers: All historical and current Section Date Range: From patient's date of to the date document was created. This section includes the names of all active insurance providers for the patient. Insurance Provider Type of Coverage Plan Name Start of Policy Coverage End of Policy Coverage Group Number Member ID Insurance Provider's Telephone Number Policy Castillo's Name Patient's Relationship to Policy Castillo [place] PREFERRED PROVIDER ORGANIZAT ION (PPO) FEP STAND NAVYA FAM Nov 06, 2006 [id number] [phone] JIMENA CHO PATIENT AN[place] PREFERRED PROVIDER ORGANIZAT ION (PPO) FEP STAND NAVYA FAM Nov 06, 2006 [id number] [phone] JIMENA CHO PATIENT AN[place] PREFERRED PROVIDER ORGANIZAT ION (PPO) FEP STAND NAVYA FAM Nov 06, 2006 105 [id number] [phone] JIMENA CHO PATIENT [place] PREFERRED PROVIDER ORGANIZAT ION (PPO) FEP STAND NAVYA FAM Nov 06, 2006 105 [id number] [phone] MARQUIS,JIMENA DY PATIENT [place] RETIREE F[place] STAND NAVYA FAMIL Y Nov 06, 2006 [id number] CHO,JIMENA DY PATIENT [place] FEP ([id number]) PRESCRIPT ION FEPRX Oct 31, 2010 [id number] [phone] MARQUIS,JIMENA DY PATIENT [employer] FEP ([id number]) PRESCRIPT ION FEP RX Oct 31, 2010 [id number] [phone] CHO,JIMENA DY PATIENT Selected Encounter This section includes the information on record at [place] for the Encounter. Date/Time Encounter Type Encounter Description Reason Provider Source Aug 02, 2024 08:45 AM ACOUSTIC IMMITANCE TESTING AUDIOLOGY ICD-10-CM H90.3 Sensorineural hearing loss, bilateral STEFANO CONWAY N IHE Encounter Template Text not used by [place] Assessments - Encounter Diagnoses This section includes the primary and secondary diagnoses documented for the Encounter. Date/Time Primary/Secondary Diagnosis Diagnosis Name Provider Source Aug 02, 2024 09:48 AM PRIMARY Sensorineural hearing loss, bilateral LAURIE CONWAY N [facility] Plan of Treatment: Future Appointments (+ 6 months) and Future Tests (+/- 45 days) The Plan of Treatment section includes future care activities for the patient from all [place] treatmentfacilities. This section includes future appointments and future orders which are active, pending or scheduled. Active, Pending, and Scheduled Orders This section includes a listing of several types of active, pending, and scheduled orders, including clinic medications orders, diagnostic test orders, procedure orders and consult orders; where the start date of the order is 45 days before the date of the Encounter or 45 days after the date of theEncounter. The data comes from all [place] treatment facilities. Test Date/Time Test Type Test Details Facility Name Aug 27, 2024 12:00 AM Laboratory - Chemi stry Order OCCULT BLOOD FIT X1 SCREEN (MFP ONLY) STOOL FECES SP [facility] Advance Directives: All historical and current Section Date Range: From patient's date of to the date document was created. This section includes ALL of a patient's completed or amended VA Advance and Rescinded Directives. The entries below indicate that a directive exists for the patient, but an actual copy is not included with this document. The data comes from all [place] facilities. Date Advance Directives Provider Source Jan 30, 2006 ADVANCE DIRECTIVE ANA VEE CS Encounter Notes: All associated encounter notes This section contains the clinical notes associated to the Encounter. Date/Time Encounter Note(s) Provider Source Aug 02, 2024 08:59 AM AUDIOLOGY E & M NO TE: LOCAL TITLE: AUDIO EVALS STL STANDARD TITLE: AUDIOLOGY E & M NOTE DATE OF NOTE: AUG 02, 2024@08:59 ENTRY DATE: AUG 02, 2024@09:00:02 AUTHOR: JONATHAN CONWAY COSIGNER: URGENCY: STATUS: COMPLETED SUBJECT: Audio Purpose of appt: audio [x] patient initiated visit [] provider initiated visit Case history: Otoscopic evaluation normal AU. TM's visible AU. Pt's main complaint is concern for bilateral hearing loss; others suggest he may have difficulty hearing and pt endorsed some difficulty understanding others. Pt reported bilateral tinnitus, primarily noticed in the mornings. Pt reported history of radiation to the head/neck for cancer treatment, but denied specific otosurgery. Pt reported episodes of dizziness occurring following blowing his nose. Pt denied pain, pressure, or recent ear infections. Baseline eval. RESULTS: Right Ear- Audiometry (air and/or bone conduction): within normal limits 250-3000 Hz sloping to mild/moderate SNHL 0315-1338 Hz. SRT: 15 dB WRS: 96% Tympanogram: type A, WNL Reflexes: ipsi: present 500-2000 Hz contra: present 500-4000 Hz Left Ear- Audiometry (air and/or bone conduction): within normal limits 250-3000 Hz sloping to mild/moderate SNHL 1361-1750 Hz. SRT: 15 dB WRS: 88% Tympanogram: type A, WNL Reflexes: ipsi: present 500-4000 Hz contra: present 500-4000 Hz Pt is a borderline candidate for hearing aids. Counseled pt regarding degree of loss. Clinician did not strongly recommend hearing aids at this time. Pt voiced understanding. Recommendations: 1. Audio re-eval 3-5 years or sooner if pt notices changes. 2. Pt may follow-up with PCP regarding dizziness symptoms as indicated. /geovany/ Av MCCURDY Graduate Orthotic/Prosthetic Clinician, Surgery Service Signed: 08/02/2024 09:50 JONATHAN CONWAY [facility]
[2025-01-29 07:38] LABS: Hemoglobin A1C 5.8 % (<5.7)
[2025-01-29 07:55] LABS: Cholesterol 201 mg/dL (0-200); HDL Direct 51 mg/dL (40-60); LDL Cholesterol Calculated 80 mg/dL (<130); Triglycerides 349 mg/dL (0-150)
== END 2025-01-29 07:03 | disposition home or self-care (01) ==
LOC: CHSLAB 07:06
PROVIDERS: PCP Family Medicine; Visit Provider Physician Assistant
DX: R73.01 Impaired fasting glucose (principal); E78.2 Mixed hyperlipidemia
CPT/HCPCS: 36415; 80061; 83036